=== PATIENT | female | born 1955 | race Caucasian/White ===

== ENCOUNTER → 2024-10-25 08:17 | Outpatient (REF) | payer MEDICARE, SELFPAY | LOC: WDC 08:17 | PROVIDERS: ATTENDING PHYSICIAN Obstetrics & Gynecology Gynecology; PRIMARYCARE PHYSICIAN Family Medicine | DX: Z12.31 Encounter for screening mammogram for malignant neoplasm of breast (principal) | CPT/HCPCS: 77063; 77067 ==